=== PATIENT | female | born 1955 | race Hispanic/Latino ===

== ENCOUNTER → 2018-11-11 | Outpatient (CLI) | payer MEDICARE ==
[~2018-11-11] MED LIST: AMOX-426 PO; GLYB1TAB3 PO; [UNRECOGNIZED DRUG - OTHER] PO; [UNRECOGNIZED DRUG - OTHER] PO
== END | disposition home or self-care (01) ==
LOC: RAH 11:19
PROVIDERS: ATTEND Transplant Surgery
DX: S92.335A Nondisplaced fracture of third metatarsal bone, left foot, initial encounter for closed fracture (principal); S92.345A Nondisplaced fracture of fourth metatarsal bone, left foot, initial encounter for closed fracture; X58.XXXA Exposure to other specified factors, initial encounter; Y93.89 Activity, other specified; Y92.89 Other specified places as the place of occurrence of the external cause; Y99.8 Other external cause status
CPT/HCPCS: 73630